=== PATIENT | male | born 2000 | race Caucasian/White ===

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

== ENCOUNTER 2022-03-30 09:52 | Emergency (ER) | payer OTHER ==
[~2022-03-30] VITALS: Ht 188 cm; Wt 97.5 kg
== END 2022-03-30 10:29 | disposition home or self-care (01) ==
LOC: ER 09:52
DX: S61.012A Laceration without foreign body of left thumb without damage to nail, initial encounter (principal); W26.0XXA Contact with knife, initial encounter
CPT/HCPCS: 99282

== ENCOUNTER 2023-10-11 10:20 | Emergency (ER) | payer OTHER ==
[~2023-10-11] VITALS: Ht 185.4 cm; Wt 77.1 kg
[2023-10-11 10:27] VITALS: BP 136/90
[2023-10-11] MEDS ORDERED: Bactrim Ds Tab1 EACH PO ×2 (12:26→13:17)
[2023-10-11] MEDS ORDERED: CEPH500 PO ×2 (12:26→13:17)
== END 2023-10-11 12:38 | disposition home or self-care (01) ==
LOC: ER 10:20
DX: L02.411 Cutaneous abscess of right axilla (principal)
CPT/HCPCS: 99283-25